=== PATIENT | female | born 1950 | race Caucasian/White ===

== ENCOUNTER 2016-05-22 11:40 | Observation (INO) | payer MEDICARE, BC ==
--- NOTE | 2016-05-22 12:46 | EKG REPORT ---
SEVERITY:- ABNORMAL ECG - SINUS BRADYCARDIA LEFT VENTRICULAR HYPERTROPHY : Confirmed by: Jane Cervantes MD 22-May-2016 12:45:07
--- NOTE | 2016-05-22 13:22 | ER Document Report ---
ED Cardiac - General Mode of Arrival: Medic Information source: Patient, Relative - - HPI Patient complains to provider of: Chest pain - Pressure Quality of pain: Pressure Chest pain radiation location: Left jaw, Right jaw Positive cardiac history: No <REUBEN TOMPKINS - Last Filed: 05/22/16 13:29> <BRYAN CRENSHAW - Last Filed: 05/22/16 15:11> - General Chief Complaint: Chest Pain Stated Complaint: CHEST PAIN Notes: Patient is 65-year-old female presenting to the emergency department concerned of chest pressure onset at 10:00 this morning while driving her to his doctor's appointment. Patient denies any true pain in her chest, stating it is only pressure, but does complain of pain radiating up into both jaws and feeling clammy. Patient has a past history of diabetes and hypertension, but she has not had any medication since she lost 50 lbs from her gastric sleeve surgery. (REUBEN TOMPKINS) This 65-year-old female patient with a history of hypertension diabetes which resolved after having gastric sleeve surgery almost a year ago. She is brought to emergency room by EMS from the doctor's office at [facility] for chest pressure. She reports she was driving to the office to take her significant other to be seen by his bander and cellophaner machine, when she developed chest pressure discomfort radiating into the jaws about 10 AM While in the office she began to get clammy and sweaty. She was seen there by nurse practitioner who administered 4 baby aspirin and called 911 to have her brought to the emergency room. She was pain free when she left the office and continues to be pain-free here in the emergency room. (BRYAN CRENSHAW) Past Medical History - General Information source: Patient, [facility] Records - Social History Smoking Status: Unknown if Ever Smoked Cigarette use (# per day): No Chew tobacco use (# tins/day): No Lives with: Spouse/Significant other Family History: Reviewed & Not Pertinent, Malignancy - Father of lung cancer - Past Medical History Cardiac Medical History: Reports: Hx Hypertension - Not since gastric sleeve Pulmonary Medical History: Reports: Hx Asthma Endocrine Medical History: Reports: Hx Diabetes Mellitus Type 2 - controlled by diet (gastric sleeve) GI Medical History: Reports: Hx Gastroesophageal Reflux Disease Past Surgical History: Reports: Hx Abdominal Surgery - gastric sleeve, Other - "eye surgery" - Immunizations Hx Diphtheria, Pertussis, Tetanus Vaccination: Yes <REUBEN TOMPKINS - Last Filed: 05/22/16 13:29> Review of Systems - Review of Systems Constitutional: See HPI, Diaphoresis - "clammy" EENT: No symptoms reported Cardiovascular: See HPI, Chest pain - Pressure Respiratory: No symptoms reported Gastrointestinal: No symptoms reported Genitourinary: No symptoms reported Female Genitourinary: No symptoms reported Musculoskeletal: No symptoms reported Skin: No symptoms reported Hematologic/Lymphatic: No symptoms reported Neurological/Psychological: No symptoms reported -: Yes All other systems reviewed and negative <ALEJANDRO TOMPKINSICA - Last Filed: 05/22/16 13:29> Physical Exam - Vital signs Interpretation: Bradycardic - General General appearance: Alert - HEENT Head: Normocephalic, Atraumatic Eyes: Normal Pupils: PERRL Neck: No: Carotid bruit - Respiratory Respiratory status: No respiratory distress Chest status: Nontender - No chest wall tenderness to palpation Breath sounds: Normal Chest palpation: Normal - Cardiovascular Rhythm: Bradycardia Heart sounds: Normal auscultation Murmur: No - Abdominal Inspection: Obese Tenderness: Nontender - Back Back: Normal, Nontender - Extremities General upper extremity: Normal inspection. No: Edema General lower extremity: Normal inspection. No: Edema - Neurological Neuro grossly intact: Yes Cognition: Normal Bradley Coma Scale Eye Opening: Spontaneous Bryce Coma Scale Verbal: Oriented Bradley Coma Scale Motor: Obeys Commands Bradley Coma Scale Total: 15 Speech: Normal - Psychological Associated symptoms: Normal affect, Normal mood - Skin Skin Temperature: Warm Skin Moisture: Moist Skin Color: Normal <ALEJANDRO TOMPKINSICA - Last Filed: 05/22/16 13:29> Course - Laboratory Result Diagrams: 05/22/16 12:23 05/22/16 12:23 - Diagnostic Test Radiology reviewed: Image reviewed, Reports reviewed - Chest x-ray does not show an acute process. - EKG Interpretation by Me EKG shows normal: Sinus rhythm, Hooper, Intervals, QRS Complexes, ST-T Waves Rate: Bradycardia - 44 Voltage: Consistant with LVH When compared to previous EKG there are: Previous EKG unavailable - Consults [facility] Time consulted: 15:05 Consulted provider: will come to ER <BRYAN CRENSHAW - Last Filed: 05/22/16 15:11> - Vital Signs Vital signs: Temp Pulse Resp BP Pulse Ox 98.1 F 50 L 13 157/79 H 98 05/22/16 12:36 05/22/16 12:36 05/22/16 13:07 05/22/16 12:36 05/22/16 13:07 (BRYAN CRENSHAW) - Laboratory Laboratory results interpreted by me: 05/22/16 05/22/16 12:23 12:23 RDW 15.8 H Sodium 145.6 H Carbon Dioxide 32 H (BRYAN CRENSHAW) Discharge <REUBEN TOMPKINS - Last Filed: 05/22/16 13:29> - Discharge Admitting Provider: Hospitalist Unit Admitted: Telemetry <BRYAN CRENSHAW - Last Filed: 05/22/16 15:11> - Discharge Clinical Impression: Bradycardia Chest pain Qualifiers: Chest pain type: unspecified Qualified Code(s): R07.9 - Chest pain, unspecified High blood pressure Qualifiers: Hypertension type: essential hypertension Qualified Code(s): I10 - Essential ( primary) hypertension Condition: Stable Disposition: ADMITTED OBSERVATION Scribe Attestation: 05/22/16 15:07 I personally performed the services described in the documentation, reviewed and edited the documentation which was dictated to the scribe in my presence, and it accurately records my words and actions. (BRYAN CRENSHAW) Scribe Documentation - Scribe Written by Scribe:: Reuben Tompkins 05/22/2016 1317 acting as scribe for :: Sukumar <REUBEN TOMPKINS - Last Filed: 05/22/16 13:29>
[2016-05-22 14:37] LABS: ABSOLUTE EOSINOPHILS # (AUTO) 0.3 10^3/uL (0.0-0.6); ABSOLUTE LYMPHOCYTES (AUTO) 2.5 10^3/uL (0.5-4.7); ABSOLUTE MONOCYTES (AUTO) 0.6 10^3/uL (0.1-1.4); ABSOLUTE NEUT (AUTO) 5.7 10^3/uL (1.7-8.2); BASOPHILS % (AUTO) 0.4 % (0-2); HEMATOCRIT 44.4 % (36.0-47.0); HEMOGLOBIN 14.3 g/dL (12.0-15.5); HGB HCT DIFFERENCE -1.5; LYMPHOCYTES % (AUTO) 27.7 % (13-45); MEAN CORPUSCULAR HEMOGLOBIN 28.8 pg (27.0-33.4); MEAN CORPUSCULAR HGB CONC 32.3 g/dL (32.0-36.0); MEAN CORPUSCULAR VOLUME 89 fl (80-97); MONOCYTES % (AUTO) 6.8 % (3-13); RED BLOOD COUNT 4.97 10^6/uL (3.72-5.28); RED CELL DISTRIBUTION WIDTH 15.8 % (11.5-14.0); SEGMENTED NEUTROPHILS % (AUTO) 62.1 % (42-78); WHITE BLOOD COUNT 9.2 10^3/uL (4.0-10.5)
[2016-05-22 14:47] LABS: ALANINE AMINOTRANSFERASE 38 U/L (9-52); ALBUMIN 4.1 g/dL (3.5-5.0); ALKALINE PHOSPHATASE 82 U/L (38-126); ANION GAP 11 (5-19); ASPARTATE AMINO TRANSFERASE 32 U/L (14-36); BILIRUBIN,TOTAL 0.6 mg/dL (0.2-1.3); BLOOD UREA NITROGEN 18 mg/dL (7-20); CALCIUM 9.9 mg/dL (8.4-10.2); CARBON DIOXIDE 32 mmol/L (22-30); CHLORIDE 103 mmol/L (98-107); CREATINE KINASE 45 U/L (30-135); CREATININE RESULT 0.76 mg/dL (0.52-1.25); GLUCOSE 86 mg/dL (75-110); POTASSIUM 4.3 mmol/L (3.6-5.0); SODIUM 145.6 mmol/L (137-145); TOTAL PROTEIN 7.6 g/dL (6.3-8.2)
[2016-05-22 14:59] LABS: CREATINE KINASE MB < 0.22 ng/mL (<4.55); TROPONIN I < 0.012 ng/mL
[2016-05-22] MEDS ORDERED: HYDRALAZINE HCL INJ/PF 20 MG/1 ML SDV IV PRN (16:06)
--- NOTE | 2016-05-22 16:06 | PDOC H&P ---
History of Present Illness Admission Date/PCP: 05/22/16 15:07 [facility] internal medicine Patient complains of: Chest pressure History of Present Illness: YARED LEON is a 65 year old with past medical history of morbid obesity status post gastric sleeve surgery as well as hypertension that presented to the emergency department concerned of chest pressure onset at 10: 00 this morning while driving her to his doctor's appointment. Patient denied any pain in her chest, stating it is only pressure, but does complain of pain radiating up into both jaws and feeling clammy. She was seen there by nurse practitioner who administered 4 baby aspirin and called 911 to have her brought to the emergency room. She was pain free when she left the office and continues to be pain-free here in the emergency room. While in the emergency department the patient was noted to be significantly bradycardic with a heart rate of 40. Patient has a past history of diabetes and hypertension, but she has not had any medication since she lost 50 lbs from her gastric sleeve surgery. The patient recently completed a 5 mile walk at the [facility] in [facility] [facility]. 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 denies: CAD Parental Family History Reviewed: Yes Children Family History Reviewed: Yes Sibling(s) Family History Reviewed.: Yes Medication/Allergy Home Medications: Hydralazine HCl [Apresoline 50 mg Tablet] 25 mg PO TID #90 tab 12/17/13 Allergies/Adverse Reactions: No Known Allergies Allergy (Unverified 05/22/16 15:25) Review of Systems Constitutional: ABSENT: chills, fever(s), headache(s), weight gain, weight loss Eyes: ABSENT: visual disturbances Ears: ABSENT: hearing changes Cardiovascular: PRESENT: other - Chest pressure. ABSENT: chest pain, dyspnea on exertion, edema, orthropnea, palpitations Respiratory: ABSENT: cough, hemoptysis Gastrointestinal: ABSENT: abdominal pain, constipation, diarrhea, hematemesis, hematochezia, nausea, vomiting Genitourinary: ABSENT: dysuria, hematuria Musculoskeletal: ABSENT: joint swelling Integumentary: PRESENT: diaphoresis. ABSENT: rash, wounds Neurological: ABSENT: abnormal gait, abnormal speech, confusion, dizziness, focal weakness, syncope Psychiatric: ABSENT: anxiety, depression, homidical ideation, suicidal ideation Endocrine: ABSENT: cold intolerance, heat intolerance, polydipsia, polyuria Hematologic/Lymphatic: ABSENT: easy bleeding, easy bruising Physical Exam Vital Signs: Temp Pulse Resp BP Pulse Ox 98.1 F 50 L 13 157/79 H 98 05/22/16 12:36 05/22/16 12:36 05/22/16 13:07 05/22/16 12:36 05/22/16 13:07 General appearance: PRESENT: no acute distress, well-developed, well-nourished Head exam: PRESENT: atraumatic, normocephalic Eye exam: PRESENT: conjunctiva pink, EOMI, PERRLA. ABSENT: scleral icterus Ear exam: PRESENT: normal external ear exam Mouth exam: PRESENT: moist, tongue midline Neck exam: ABSENT: carotid bruit, JVD, lymphadenopathy, thyromegaly Respiratory exam: PRESENT: clear to auscultation saleem, symmetrical, unlabored. ABSENT: rales, rhonchi, tachypnea, wheezes Cardiovascular exam: PRESENT: bradycardia, RRR. ABSENT: diastolic murmur, rubs , systolic murmur Pulses: PRESENT: normal dorsalis pedis pul Vascular exam: PRESENT: normal capillary refill GI/Abdominal exam: PRESENT: normal bowel sounds, soft. ABSENT: distended, guarding, mass, organolmegaly, rebound, tenderness Rectal exam: PRESENT: deferred Extremities exam: PRESENT: full ROM. ABSENT: calf tenderness, clubbing, pedal edema Neurological exam: PRESENT: alert, awake, oriented to person, oriented to place , oriented to time, oriented to situation, CN II-XII grossly intact. ABSENT: motor sensory deficit Psychiatric exam: PRESENT: appropriate affect, normal mood. ABSENT: homicidal ideation, suicidal ideation Skin exam: PRESENT: dry, intact, warm. ABSENT: cyanosis, rash Results Laboratory Results: Labs- Last Values WBC 9.2 10^3/uL (4.0-10.5) 05/22/16 12:23 RBC 4.97 10^6/uL (3.72-5.28) 05/22/16 12:23 Hgb 14.3 g/dL (12.0-15.5) 05/22/16 12:23 Hct 44.4 % (36.0-47.0) 05/22/16 12:23 MCV 89 fl (80-97) 05/22/16 12:23 MCH 28.8 pg (27.0-33.4) 05/22/16 12:23 MCHC 32.3 g/dL (32.0-36.0) 05/22/16 12:23 RDW 15.8 % (11.5-14.0) H 05/22/16 12:23 Plt Count 269 10^3/uL (150-450) 05/22/16 12:23 Seg Neutrophils % 62.1 % (42-78) 05/22/16 12:23 Lymphocytes % 27.7 % (13-45) 05/22/16 12:23 Monocytes % 6.8 % (3-13) 05/22/16 12:23 Eosinophils % 3.0 % (0-6) 05/22/16 12:23 Basophils % 0.4 % (0-2) 05/22/16 12:23 Absolute Neutrophils 5.7 10^3/uL (1.7-8.2) 05/22/16 12:23 Absolute Lymphocytes 2.5 10^3/uL (0.5-4.7) 05/22/16 12:23 Absolute Monocytes 0.6 10^3/uL (0.1-1.4) 05/22/16 12:23 Absolute Eosinophils 0.3 10^3/uL (0.0-0.6) 05/22/16 12:23 Absolute Basophils 0.0 10^3/uL (0.0-0.2) 05/22/16 12:23 Sodium 145.6 mmol/L (137-145) H 05/22/16 12:23 Potassium 4.3 mmol/L (3.6-5.0) 05/22/16 12:23 Chloride 103 mmol/L (98-107) 05/22/16 12:23 Carbon Dioxide 32 mmol/L (22-30) H 05/22/16 12:23 Anion Gap 11 (5-19) 05/22/16 12:23 BUN 18 mg/dL (7-20) 05/22/16 12:23 Creatinine 0.76 mg/dL (0.52-1.25) 05/22/16 12:23 Est GFR ( Amer) > 60 (>60) 05/22/16 12:23 Est GFR (Non-Af Amer) > 60 (>60) 05/22/16 12:23 Glucose 86 mg/dL (75-110) 05/22/16 12:23 Calcium 9.9 mg/dL (8.4-10.2) 05/22/16 12:23 Total Bilirubin 0.6 mg/dL (0.2-1.3) 05/22/16 12:23 Direct Bilirubin 0.0 mg/dL (0.0-0.3) 05/22/16 12:23 AST 32 U/L (14-36) 05/22/16 12:23 ALT 38 U/L (9-52) 05/22/16 12:23 Alkaline Phosphatase 82 U/L (38-126) 05/22/16 12:23 Creatine Kinase 45 U/L (30-135) 05/22/16 12:23 CK-MB (CK-2) < 0.22 ng/mL (<4.55) 05/22/16 12:23 Troponin I < 0.012 ng/mL 05/22/16 12:23 Total Protein 7.6 g/dL (6.3-8.2) 05/22/16 12:23 Albumin 4.1 g/dL (3.5-5.0) 05/22/16 12:23 Impressions: Chest X-Ray 05/22/16 13:15 IMPRESSION: NO ACUTE RADIOGRAPHIC FINDING IN THE CHEST. Assessment & Plan - Diagnosis (1) Chest pain Qualifiers: Chest pain type: unspecified Qualified Code(s): R07.9 - Chest pain, unspecified Is this a current diagnosis for this admission?: YesPlan: Will observe the patient continues telemetry unit, obtain serial cardiac enzymes , repeat EKG, and obtain lipid panel in the a.m. (2) Hypertension Qualifiers: Hypertension type: essential hypertension Qualified Code(s): I10 - Essential (primary) hypertension Is this a current diagnosis for this admission?: YesPlan: Most likely the patient does have elevated blood pressure at baseline. The patient has had a history of hypertension but this did improve after her weight loss however given the patient's significant hypertension at this time will cover with when necessary coverage. (3) Bradycardia Is this a current diagnosis for this admission?: YesPlan: It appears sinus. The patient denies any previous history of this. The patient is on any medications. Will consult cardiology for input. (4) Obesity (BMI 30.0-34.9) Is this a current diagnosis for this admission?: YesPlan: Status post surgery (5) DVT prophylaxis Is this a current diagnosis for this admission?: YesPlan: Will add subcutaneous Lovenox - Time Time Spent: 50 to 70 Minutes Medications reviewed and adjusted accordingly: Yes Anticipated discharge: Home Within: within 24 hours
[2016-05-22] MEDS ORDERED: INFLUENZA ADLT QUAD (36MOS+) 2016-17 VAC 0.5 ML SYR IM PRN (16:53)
[2016-05-22] MEDS: LANSOPRAZOLE 30 MG TAB.RAP.DR PO SCH (17:21)
[2016-05-22 18:16] LABS: APPEARANCE,URINE SLIGHTLY-CLOUDY; BILIRUBIN,URINE NEGATIVE (NEGATIVE); GLUCOSE, URINE NEGATIVE (NEGATIVE); KETONES,URINE NEGATIVE (NEGATIVE); LEUKOCYTE ESTERASE,URINE NEGATIVE (NEGATIVE); NITRITE,URINE NEGATIVE (NEGATIVE); PROTEIN,URINE NEGATIVE (NEGATIVE); URINE SPECIFIC GRAVITY 1.014; UROBILINOGEN,URINE NEGATIVE mg/dL (<2.0)
--- NOTE | 2016-05-22 20:01 | PDOC CONSULTATION ---
Consultation Consult Date: 05/22/16 Attending physician:: MONAE VARGAS Consult reason:: Chest pain History of Present Illness Admission Date/PCP: 05/22/16 15:07 Patient complains of: Chest pain and shortness of breath History of Present Illness: YARED ELON is a 65 year old with past medical history of morbid obesity status post gastric sleeve surgery as well as hypertension that presented to the emergency department concerned of chest pressure onset at 10: 00 this morning while driving her to his doctor's appointment. Patient denied any pain in her chest, stating it is only pressure, but does complain of pain radiating up into both jaws and feeling clammy. She was seen there by nurse practitioner who administered 4 baby aspirin and called 911 to have her brought to the emergency room. She was pain free when she left the office and continues to be pain-free here in the emergency room. While in the emergency department the patient was noted to be significantly bradycardic with a heart rate of 40. Patient has a past history of diabetes and hypertension, but she has not had any medication since she lost 50 lbs from her gastric sleeve surgery. The patient recently completed a 5 mile walk at the [facility] in [facility]. This history was reviewed and confirmed. Patient denied any prior history of myocardial infarction, angina, congestive heart failure, pulmonary embolism, strokes or mini strokes. She does give history of snoring and gastroesophageal reflux. Patient does describe history of difficulty falling asleep and staying asleep. Past Medical History Cardiac Medical History: Reports: Hypertension - Not since gastric sleeve Pulmonary Medical History: Reports: Asthma Endocrine Medical History: Reports: Diabetes Mellitus Type 2 - controlled by diet (gastric sleeve) GI Medical History: Reports: Gastroesophageal Reflux Disease Psychiatric Medical History: Denies: Depression Past Surgical History Past Surgical History: Reports: Gastric Bypass Surgery - Gastric sleeve, Other - "eye surgery" Social History Lives with: Spouse/Significant other Smoking Status: Never Smoker Cigarettes Packs Per Day: 1 Number of Years Smokin Last Time Smoked: Age 29 Frequency of Alcohol Use: None Hx Recreational Drug Use: No Drugs: None Hx Prescription Drug Abuse: No - Advance Directive Resuscitation Status: Full Code Family History Family History: Reviewed & Not Pertinent, Malignancy - Father of lung cancer. denies: CAD Parental Family History Reviewed: Yes Children Family History Reviewed: Yes Sibling(s) Family History Reviewed.: Yes - Negative for premature coronary artery disease or sudden cardiac in the family amongst first degree relatives. Medication/Allergy Home Medications: Esomeprazole Magnesium [Nexium] 40 mg PO QHS 05/22/16 Flaxseed Oil [Flax Seed Oil] 1,000 mg PO DAILY 05/22/16 Multivitamin [Multivitamins] 1 dose PO DAILY 05/22/16 Atorvastatin Calcium [Lipitor 10 mg Tablet] 10 mg PO QHS #30 tablet 05/23/16 Losartan Potassium [Cozaar 25 mg Tablet] 25 mg PO DAILY #30 tablet 05/23/16 Allergies/Adverse Reactions: iodine Allergy (Verified 05/22/16 22:21) Review of Systems Review of Systems: Please see history of present illness and past medical history as wall. Constitutional: No fever or chills reported. Head : No recent chronic headaches, recent head injury. Eyes: No recent eye pain, diplopia, redness, discharge, acute visual changes. Ears: No recent chronic ear pain, acute hearing loss, ear discharge. Oral cavity: No recent ulcerations, bleeding, oral cavity discomfort. Neck: No recent acute neck pain reported. Hematologic: No recent easy bruising or bleeding or hematologic malignancy reported. Lymphatic: No recent lymphatic malignancy, chronic lymphadenopathy reported yet Cardiovascular system review: See history of present illness. Chest pain and shortness of breath as noted above. Respiratory system review: No recent chronic cough, hemoptysis, blood clots in the lungs reported. Mild Shortness of breath on exertion Gastrointestinal system review: Negative for any recent acute or chronic abdominal pain, hematemesis, melena, recent change in bowel habits. Patient status post gastric bypass surgery. Genitourinary system review: No recent acute or chronic hematuria, flank pain, UTI etc. reported. Skin system review: Negative for any recent abnormal bruising, no rash, no pruritus reported. Neurologic: No prior history of strokes, mini strokes, seizure disorder. Gives history of snoring, daytime fatigue and sleepiness Psychologic: No history of major psychosis or depression reported. Musculoskeletal: Minor aches and pains reported. No acute joint swelling reported. Endocrine: No recent polyuria, polydipsia, recent heat or cold intolerance. Physical Exam Vital Signs: Temp Pulse Resp BP Pulse Ox 97.9 F 52 L 20 183/74 H 100 05/22/16 16:48 05/22/16 16:51 05/22/16 16:48 05/22/16 16:48 05/22/16 16:48 Intake & Output 05/21/16 05/22/16 05/23/16 06:59 06:59 06:59 Intake Total 480 Balance 480 Exam: GENERAL: well-nourished and in no acute distress. Alert and oriented x3 HEAD: Atraumatic, normocephalic. EYES: Pupils equal round and reactive to light, extraocular movements intact, sclera anicteric, conjunctiva are normal. ENT: TMs normal, nares patent, oropharynx clear without exudates. Moist mucous membranes. No oral ulcerations or bleeding gums noted NECK: supple without lymphadenopathy. Trachea is central. No cervical or axillary lymphadenopathy noted. Carotids are 2+, JVD WNL LUNGS: Respiration seems nonlabored, no significant accessory muscle action noted. Breath sounds clear to auscultation bilaterally and equal. No wheezes rales or rhonchi. No significant dullness noted on percussion. CHEST: Palpation of the chest wall shows no significant chest wall tenderness or abnormalities. 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 ABDOMEN: Soft, no significant tenderness appreciated, normoactive bowel sounds. No guarding, no rebound. No rigidity noted . No masses appreciated. EXTREMITIES: Pedal pulses are 1-2+, no calf tenderness noted. No clubbing or cyanosis.trace to 1+ pedal edema noted NEUROLOGICAL: Focused neurological exam showed no significant neurologic deficit. Normal speech, no focal weakness appreciated. PSYCH: Normal mood, normal affect. Judgment and insight within normal limits. SKIN: No significant ecchymosis, rash, ulcerations or signs of pruritus noted. MUSCULOSKELETAL EXAM: No significant joint swelling noted. Results Laboratory Results: 05/22/16 17:29 Urine Color YELLOW Urine Appearance SLIGHTLY-CLOUDY Urine pH 5.0 Ur Specific [place] 1.014 Urine Protein NEGATIVE Urine Glucose (UA) NEGATIVE Urine Ketones NEGATIVE Urine Blood NEGATIVE Urine Nitrite NEGATIVE Ur Leukocyte Esterase NEGATIVE Urine WBC (Auto) 1 Urine RBC (Auto) 0 EKG Comments: 12-lead EKG shows sinus bradycardia without any acute ST-T wave changes. Impressions: Chest X-Ray 05/22/16 13:15 IMPRESSION: NO ACUTE RADIOGRAPHIC FINDING IN THE CHEST. Assessment & Plan - Diagnosis (1) Chest pain Qualifiers: Chest pain type: unspecified Qualified Code(s): R07.9 - Chest pain, unspecified Is this a current diagnosis for this admission?: Yes (2) Bradycardia Is this a current diagnosis for this admission?: Yes (3) Gastroesophageal reflux disease Qualifiers: Esophagitis presence: esophagitis presence not specified Qualified Code(s): K21.9 - Gastro-esophageal reflux disease without esophagitis Is this a current diagnosis for this admission?: Yes (4) Obesity (BMI 30.0-34.9) Is this a current diagnosis for this admission?: Yes (5) Sleep disorder breathing Is this a current diagnosis for this admission?: Yes - Notes Notes: Chest pain: Patient has some typical and atypical features of chest pain. Cardiac enzymes so far has been negative. Electrocardiogram did not show any definitive ST segment changes. Multiple differential diagnoses exist in this patient. In descending order of probability this includes underlying coronary artery disease, gastroesophageal reflux, musculoskeletal pain, referred pain from elsewhere, anxiety panic disorder etc.Patient has significant cardiac risk factors, which indicates that there is a intermediate probability of chest discomfort coming from underlying CAD. Patient would benefit from a nuclear stress test and this can be scheduled as an outpatient. In the meantime will place patient empirically on double dose proton pump inhibitor and also schedule her for a CTA chest to rule out pulmonary embolism. Gastroesophageal reflux: Recommend double dose proton pump inhibitor. Bradycardia: Could be vagal reaction. Sometimes sleep apnea can cause increased vagal tone. At this point asymptomatic and will continue to observe. Obesity: Patient is status post gastric sleeve surgery. Patient will benefit from continuing calorie restriction and exercise program. Sleep disorder:This is suspect that based on patient's symptoms of snoring, daytime fatigue and somnolence. Patient also has difficulty falling asleep and staying asleep. Patient has obesity and oropharyngeal exams suggest high probability of underlying sleep apnea syndrome. Have discussed this with the patient. Discussed increased risk of cardiovascular event rate, cerebrovascular accident, cardiac arrhythmias, uncontrolled hypertension etc. as being associated with untreated sleep apnea. Discussed that we'll be happy to schedule this as an outpatient. Patient has been recommended weight loss, sleep hygiene. - Time Time Spent: 30 to 50 Minutes - CODE STATUS was discussed, patient remains full code. Surrogate decision-maker patient's . Multiple medical problems were addressed.More than 50% of the time spent coordinating care, discussing management plans with involved caregivers. Management plans discussed with involved personnels. Medical decision making was of moderate complexity.
[2016-05-22] MEDS ORDERED: DIPHENHYDRAMINE HCL 25 MG CAPSULE PO ONE (22:17)
[2016-05-22] MEDS: HEPARIN SOD (PORCINE) 5,000 UNIT/ML 1 ML SYRINGE SUBCUT SCH (22:19)
[2016-05-23] MEDS: LANSOPRAZOLE 30 MG TAB.RAP.DR PO SCH (06:22)
[2016-05-23] MEDS: HEPARIN SOD (PORCINE) 5,000 UNIT/ML 1 ML SYRINGE SUBCUT SCH (06:22)
[2016-05-23 06:48] LABS: CHOLESTEROL 201.29 mg/dL (0-200); Direct HDL 53 mg/dL (>40); TRIGLYCERIDES 214 mg/dL (<150)
[2016-05-23 06:59] LABS: DIRECT LDL 113 mg/dL (<100)
[2016-05-23 07:00] LABS: VLDL CHOLESTEROL 42.8 mg/dL (10-31)
[2016-05-23 08:03] VITALS: BP 148/67
[2016-05-23] MEDS ORDERED: LOSARTAN POTASSIUM 25 MG TABLET PO SCH (12:00)
[2016-05-23] MEDS ORDERED: LOSARTAN POTASSIUM 25 MG TABLET PO ONE (14:00)
--- NOTE | 2016-05-23 15:17 | EKG REPORT ---
SEVERITY:- NORMAL ECG - SINUS RHYTHM : Confirmed by: Jane Cervantes MD 23-May-2016 15:16:35
--- NOTE | 2016-05-23 18:40 | PDOC PROGRESS REPORT ---
Subjective Progress Note for:: 05/23/16 Subjective:: Patient seems to be doing better without any recurrence of chest pain, nausea vomiting.. Pt is denying any chest arm or neck discomfort. Patient denying any PND, orthopnea. Patient denied any sustained palpitations, dizziness, syncope, near syncope. Patient denying any fever chills. Patient denying any other significant discomfort. Patient is maintaining sinus rhythm. Patient noted to be mildly bradycardic but asymptomatic. All cardiac enzymes so far has come back negative. EKG without any acute ST segment changes. CTA of the chest positive for findings suggestive of pulmonary hypertension and also gallstones with sludge. Review of systems: Rest review of systems negative. Medications: Medications have been reviewed. Physical Exam Vital Signs: Temp Pulse Resp BP Pulse Ox 98.1 F 50 L 18 148/67 H 98 05/23/16 12:11 05/23/16 12:11 05/23/16 12:11 05/23/16 12:11 05/23/16 12:11 Intake & Output 05/22/16 05/23/16 05/24/16 06:59 06:59 06:59 Intake Total 1480 Balance 1480 Exam: GENERAL: well-nourished and in no acute distress. Alert and oriented x3 HEAD: Atraumatic, normocephalic. EYES: Pupils equal round and reactive to light, extraocular movements intact, sclera anicteric, conjunctiva are normal. ENT: TMs normal, nares patent, oropharynx clear without exudates. Moist mucous membranes. No oral ulcerations or bleeding gums noted NECK: supple without lymphadenopathy. Trachea is central. No cervical or axillary lymphadenopathy noted. Carotids are 2+, JVD WNL LUNGS: Respiration seems nonlabored, no significant accessory muscle action noted. Breath sounds clear to auscultation bilaterally and equal. No wheezes rales or rhonchi. No significant dullness noted on percussion. CHEST: Palpation of the chest wall shows no significant chest wall tenderness or abnormalities. 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 ABDOMEN: Soft, no significant tenderness appreciated, normoactive bowel sounds. No guarding, no rebound. No rigidity noted . No masses appreciated. EXTREMITIES: Pedal pulses are 1-2+, no calf tenderness noted. No clubbing or cyanosis.trace to 1+ pedal edema noted NEUROLOGICAL: Focused neurological exam showed no significant neurologic deficit. Normal speech, no focal weakness appreciated. PSYCH: Normal mood, normal affect. Judgment and insight within normal limits. SKIN: No significant ecchymosis, rash, ulcerations or signs of pruritus noted. MUSCULOSKELETAL EXAM: No significant joint swelling noted. Results Laboratory Results: 05/22/16 05/23/16 17:29 06:18 Triglycerides 214 H Cholesterol 201.29 H LDL Cholesterol Direct 113 H VLDL Cholesterol 42.8 H HDL Cholesterol 53 Urine Color YELLOW Urine Appearance SLIGHTLY-CLOUDY Urine pH 5.0 Ur Specific [place] 1.014 Urine Protein NEGATIVE Urine Glucose (UA) NEGATIVE Urine Ketones NEGATIVE Urine Blood NEGATIVE Urine Nitrite NEGATIVE Ur Leukocyte Esterase NEGATIVE Urine WBC (Auto) 1 Urine RBC (Auto) 0 05/22/16 05/23/16 20:13 02:27 Troponin I < 0.012 < 0.012 EKG Comments: 12-lead EKG shows sinus rhythm, with mild bradycardia but no acute ST-T wave changes Impressions: Chest X-Ray 05/22/16 13:15 IMPRESSION: NO ACUTE RADIOGRAPHIC FINDING IN THE CHEST. Chest/Abdomen CTA 05/22/16 18:53 IMPRESSION: NO PULMONARY EMBOLI. MILD ENLARGEMENT OF THE PULMONARY ARTERIES SUGGESTIVE OF PULMONARY ARTERY HYPERTENSION. CHOLELITHIASIS WITHOUT CT EVIDENCE OF CHOLECYSTITIS. Assessment & Plan - Diagnosis (1) Chest pain Qualifiers: Chest pain type: unspecified Qualified Code(s): R07.9 - Chest pain, unspecified Is this a current diagnosis for this admission?: Yes (2) Bradycardia Is this a current diagnosis for this admission?: Yes (3) Gastroesophageal reflux disease Qualifiers: Esophagitis presence: esophagitis presence not specified Qualified Code(s): K21.9 - Gastro-esophageal reflux disease without esophagitis Is this a current diagnosis for this admission?: Yes (4) Obesity (BMI 30.0-34.9) Is this a current diagnosis for this admission?: Yes (5) Sleep disorder breathing Is this a current diagnosis for this admission?: Yes (6) Cholelithiasis Qualifiers: Cholecystitis presence: without cholecystitis Biliary obstruction: without biliary obstruction Is this a current diagnosis for this admission?: Yes - Notes Notes: Chest pain: Patient has some typical and atypical features of chest pain. Cardiac enzymes so far has been negative. Electrocardiogram did not show any definitive ST segment changes. Multiple differential diagnoses exist in this patient. In descending order of probability this includes underlying coronary artery disease, gastroesophageal reflux, musculoskeletal pain, referred pain from elsewhere, anxiety panic disorder etc.Patient has significant cardiac risk factors, which indicates that there is a intermediate probability of chest discomfort coming from underlying CAD. Patient would benefit from a nuclear stress test and this can be scheduled as an outpatient. CTA findings were discussed. Gastroesophageal reflux: Recommend double dose proton pump inhibitor for the time being Bradycardia: Could be vagal reaction. Sometimes sleep apnea can cause increased vagal tone. At this point asymptomatic and will continue to observe. We will consider obtaining a TSH results. Obesity: Patient is status post gastric sleeve surgery. Patient will benefit from continuing calorie restriction and exercise program. Sleep disorder:This is suspect that based on patient's symptoms of snoring, daytime fatigue and somnolence. Patient also has difficulty falling asleep and staying asleep. Patient has obesity and oropharyngeal exams suggest high probability of underlying sleep apnea syndrome. Have discussed this with the patient. Discussed increased risk of cardiovascular event rate, cerebrovascular accident, cardiac arrhythmias, uncontrolled hypertension etc. as being associated with untreated sleep apnea. Discussed that we'll be happy to schedule this as an outpatient. Patient has been recommended weight loss, sleep hygiene. Gallstones: These were noted on CTA of the chest. Recommended that patient schedule a surgical appointment for consideration of cholecystectomy. Patient being obese and also being status post gastric sleeve surgery, Patient at high risk for gallstones development. Recommended follow-up study with 2-D echocardiogram and a nuclear stress test, ultrasound of the liver with gallbladder, surgical consultation etc. total time spent approximately 40 minutes. - Time Time with patient: Greater than 35 minutes - CODE STATUS was discussed, patient remains full code. Surrogate decision-maker unchanged. Multiple medical problems were addressed.More than 50% of the time spent coordinating care, discussing management plans with involved caregivers. Management plans discussed with involved personnels. Medical decision making was of moderate complexity.
[2016-05-23] MEDS ORDERED: ATORVASTATIN CALCIUM 10 MG TABLET PO SCH (22:00)
[2016-05-24] MEDS ORDERED: LOSARTAN POTASSIUM 25 MG TABLET PO SCH (10:00)
--- NOTE | 2016-05-24 16:52 | PDOC DISCHARGE SUMMARY ---
General - Admit/Disc Date/PCP Admission Date/Primary Care Provider: 05/22/16 15:07 [facility] internal medicine Discharge Date: 05/23/16 - Discharge Diagnosis (1) Chest pain Is this a current diagnosis for this admission?: Yes (2) Hypertension Is this a current diagnosis for this admission?: Yes (3) Bradycardia Is this a current diagnosis for this admission?: Yes (4) Obesity (BMI 30.0-34.9) Is this a current diagnosis for this admission?: Yes (5) Cholelithiasis Is this a current diagnosis for this admission?: Yes (6) Gastroesophageal reflux disease Is this a current diagnosis for this admission?: Yes (7) Sleep disorder breathing Is this a current diagnosis for this admission?: Yes (8) DVT prophylaxis Is this a current diagnosis for this admission?: Yes - Additional Information Resuscitation Status: Full Code Discharge Diet: As Tolerated Discharge Activity: Activity As Tolerated Home Medications: Esomeprazole Magnesium [Nexium] 40 mg PO QHS 05/22/16 Flaxseed Oil [Flax Seed Oil] 1,000 mg PO DAILY 05/22/16 Multivitamin [Multivitamins] 1 dose PO DAILY 05/22/16 Atorvastatin Calcium [Lipitor 10 mg Tablet] 10 mg PO QHS #30 tablet 05/23/16 Losartan Potassium [Cozaar 25 mg Tablet] 25 mg PO DAILY #30 tablet 05/23/16 History of Present Illness Patient complains of: Chest heaviness History of Present Illness: YARED LEON is a 65 year old with past medical history of morbid obesity status post gastric sleeve surgery as well as hypertension that presented to the emergency department concerned of chest pressure onset at 10: 00 this morning while driving her to his doctor's appointment. Patient denied any pain in her chest, stating it is only pressure, but does complain of pain radiating up into both jaws and feeling clammy. She was seen there by nurse practitioner who administered 4 baby aspirin and called 911 to have her brought to the emergency room. She was pain free when she left the office and continues to be pain-free here in the emergency room. While in the emergency department the patient was noted to be significantly bradycardic with a heart rate of 40. Patient has a past history of diabetes and hypertension, but she has not had any medication since she lost 50 lbs from her gastric sleeve surgery. The patient recently completed a 5 mile walk at the [facility] in [facility] and the [facility]. Hospital Course Hospital Course: The patient was observed in a continues telemetry unit, serial cardiac enzymes were obtained which were nonsuggestive. The patient's EKG revealed no acute changes and the patient had no events on patient monitor. Patient had no further replication of symptoms. The patient was seen and evaluated by Dr. Padgett with cardiology has been cleared for discharge from a cardiology perspective. Physical Exam Vital Signs: Temp Pulse Resp BP Pulse Ox 98.1 F 50 L 18 148/67 H 98 05/23/16 12:11 05/23/16 12:11 05/23/16 12:11 05/23/16 12:11 05/23/16 12:11 Intake & Output 05/22/16 05/23/16 05/24/16 23:59 23:59 23:59 Intake Total 1480 0 Balance 1480 0 General appearance: PRESENT: no acute distress, cooperative, well-developed, well-nourished Head exam: PRESENT: atraumatic, normocephalic Eye exam: PRESENT: conjunctiva pink, EOMI, PERRLA. ABSENT: scleral icterus Ear exam: PRESENT: normal external ear exam Mouth exam: PRESENT: moist, tongue midline Neck exam: ABSENT: carotid bruit, JVD, lymphadenopathy, thyromegaly Respiratory exam: PRESENT: clear to auscultation saleem, symmetrical, unlabored. ABSENT: rales, rhonchi, tachypnea, wheezes Cardiovascular exam: PRESENT: RRR. ABSENT: diastolic murmur, rubs, systolic murmur Pulses: PRESENT: normal dorsalis pedis pul Vascular exam: PRESENT: normal capillary refill GI/Abdominal exam: PRESENT: normal bowel sounds, soft. ABSENT: distended, guarding, mass, organolmegaly, rebound, tenderness Rectal exam: PRESENT: deferred Extremities exam: PRESENT: full ROM. ABSENT: calf tenderness, clubbing, pedal edema Neurological exam: PRESENT: alert, awake, oriented to person, oriented to place , oriented to time, oriented to situation, CN II-XII grossly intact. ABSENT: motor sensory deficit Psychiatric exam: PRESENT: appropriate affect, normal mood. ABSENT: homicidal ideation, suicidal ideation Skin exam: PRESENT: dry, intact, warm. ABSENT: cyanosis, rash Results Laboratory Results: Labs- Last Values WBC 9.2 10^3/uL (4.0-10.5) 05/22/16 12:23 RBC 4.97 10^6/uL (3.72-5.28) 05/22/16 12:23 Hgb 14.3 g/dL (12.0-15.5) 05/22/16 12:23 Hct 44.4 % (36.0-47.0) 05/22/16 12:23 MCV 89 fl (80-97) 05/22/16 12:23 MCH 28.8 pg (27.0-33.4) 05/22/16 12:23 MCHC 32.3 g/dL (32.0-36.0) 05/22/16 12:23 RDW 15.8 % (11.5-14.0) H 05/22/16 12:23 Plt Count 269 10^3/uL (150-450) 05/22/16 12:23 Seg Neutrophils % 62.1 % (42-78) 05/22/16 12:23 Lymphocytes % 27.7 % (13-45) 05/22/16 12:23 Monocytes % 6.8 % (3-13) 05/22/16 12:23 Eosinophils % 3.0 % (0-6) 05/22/16 12:23 Basophils % 0.4 % (0-2) 05/22/16 12:23 Absolute Neutrophils 5.7 10^3/uL (1.7-8.2) 05/22/16 12:23 Absolute Lymphocytes 2.5 10^3/uL (0.5-4.7) 05/22/16 12:23 Absolute Monocytes 0.6 10^3/uL (0.1-1.4) 05/22/16 12:23 Absolute Eosinophils 0.3 10^3/uL (0.0-0.6) 05/22/16 12:23 Absolute Basophils 0.0 10^3/uL (0.0-0.2) 05/22/16 12:23 Sodium 145.6 mmol/L (137-145) H 05/22/16 12:23 Potassium 4.3 mmol/L (3.6-5.0) 05/22/16 12:23 Chloride 103 mmol/L (98-107) 05/22/16 12:23 Carbon Dioxide 32 mmol/L (22-30) H 05/22/16 12:23 Anion Gap 11 (5-19) 05/22/16 12:23 BUN 18 mg/dL (7-20) 05/22/16 12:23 Creatinine 0.76 mg/dL (0.52-1.25) 05/22/16 12:23 Est GFR ( Amer) > 60 (>60) 05/22/16 12:23 Est GFR (Non-Af Amer) > 60 (>60) 05/22/16 12:23 Glucose 86 mg/dL (75-110) 05/22/16 12:23 Calcium 9.9 mg/dL (8.4-10.2) 05/22/16 12:23 Total Bilirubin 0.6 mg/dL (0.2-1.3) 05/22/16 12:23 Direct Bilirubin 0.0 mg/dL (0.0-0.3) 05/22/16 12:23 AST 32 U/L (14-36) 05/22/16 12:23 ALT 38 U/L (9-52) 05/22/16 12:23 Alkaline Phosphatase 82 U/L (38-126) 05/22/16 12:23 Creatine Kinase 45 U/L (30-135) 05/22/16 12:23 CK-MB (CK-2) < 0.22 ng/mL (<4.55) 05/22/16 12:23 Troponin I < 0.012 ng/mL 05/23/16 02:27 Total Protein 7.6 g/dL (6.3-8.2) 05/22/16 12:23 Albumin 4.1 g/dL (3.5-5.0) 05/22/16 12:23 Triglycerides 214 mg/dL (<150) H 05/23/16 06:18 Cholesterol 201.29 mg/dL (0-200) H 05/23/16 06:18 LDL Cholesterol Direct 113 mg/dL (<100) H 05/23/16 06:18 VLDL Cholesterol 42.8 mg/dL (10-31) H 05/23/16 06:18 HDL Cholesterol 53 mg/dL (>40) 05/23/16 06:18 Urine Color YELLOW 05/22/16 17:29 Urine Appearance SLIGHTLY-CLOUDY 05/22/16 17:29 Urine pH 5.0 (5.0-9.0) 05/22/16 17:29 Ur Specific [place] 1.014 05/22/16 17:29 Urine Protein NEGATIVE mg/dL (NEGATIVE) 05/22/16 17:29 Urine Glucose (UA) NEGATIVE mg/dL (NEGATIVE) 05/22/16 17:29 Urine Ketones NEGATIVE mg/dL (NEGATIVE) 05/22/16 17:29 Urine Blood NEGATIVE (NEGATIVE) 05/22/16 17:29 Urine Nitrite NEGATIVE (NEGATIVE) 05/22/16 17: Urine Bilirubin NEGATIVE (NEGATIVE) 05/22/16 17: Urine Urobilinogen NEGATIVE mg/dL (<2.0) 05/22/16 17:29 Ur Leukocyte Esterase NEGATIVE (NEGATIVE) 05/22/16 17:29 Urine WBC (Auto) 1 /HPF 05/22/16 17:29 Urine RBC (Auto) 0 /HPF 05/22/16 17:29 Squamous Epi Cells Auto <1 /HPF 05/22/16 17:29 Urine Mucus (Auto) RARE /LPF 05/22/16 17:29 Urine Ascorbic Acid 40 (NEGATIVE) H 05/22/16 17:29 Impressions: Chest X-Ray 05/22/16 13:15 IMPRESSION: NO ACUTE RADIOGRAPHIC FINDING IN THE CHEST. Chest/Abdomen CTA 05/22/16 18:53 IMPRESSION: NO PULMONARY EMBOLI. MILD ENLARGEMENT OF THE PULMONARY ARTERIES SUGGESTIVE OF PULMONARY ARTERY HYPERTENSION. CHOLELITHIASIS WITHOUT CT EVIDENCE OF CHOLECYSTITIS. Qualifiers PATEINT BEING DISCHARGED WITH ANY OF THE FOLLOWING DIAGNOSIS?: No Plan Time Spent: Less than 30 Minutes
== END 2016-05-23 13:01 | disposition home or self-care (01) ==
LOC: ER 11:40 → EH 15:07 → UNDOADMOB 15:19 → EH 15:19 → 4N 16:45
PROVIDERS: ADMIT Family Medicine; ATTEND Family Medicine
PROC: 3E0234Z Introduction of Serum, Toxoid and Vaccine into Muscle, Percutaneous Approach (ICD-10-PCS; principal; 2016-05-22)
DX: R07.9 Chest pain, unspecified (principal); I10 Essential (primary) hypertension; R00.1 Bradycardia, unspecified; E66.01 Morbid (severe) obesity due to excess calories; Z68.30 Body mass index [BMI] 30.0-30.9, adult; K80.20 Calculus of gallbladder without cholecystitis without obstruction; K21.9 Gastro-esophageal reflux disease without esophagitis; G47.30 Sleep apnea, unspecified; Z79.01 Long term (current) use of anticoagulants; E11.9 Type 2 diabetes mellitus without complications; Z98.84 Bariatric surgery status; Z23 Encounter for immunization; J45.909 Unspecified asthma, uncomplicated
CPT/HCPCS: 93005 ×2; 99285; 36415 ×2; 82553; 82550; 85025; 80053; 81001; 84484 ×2; 80061; 71010; 71275; 90686; 93010 ×2; G0378 ×3; J1644 ×2; A9270 ×3; J0360; J3490 ×2; 90471; G0008

== ENCOUNTER → 2017-10-12 | Outpatient (CLI) | payer MEDICARE, BC ==
--- NOTE | 2017-10-12 15:18 | RADIOLOGY REPORT (SQ) ---
EXAM DESCRIPTION: MRI LT LOWER JOINT WITHOUT COMPLETED DATE/TIME: 10/12/2017 8:45 am REASON FOR STUDY: L KNEE PAIN M25.562 PAIN IN LEFT KNEE COMPARISON: None. TECHNIQUE: Rightknee images acquired and stored on PACS. Multiplanar images include fat sensitive s equences as T1, water sensitive sequences as FST2 or STIR, cartilage sensitive sequences as FSPD, and gradient echo sequences. LIMITATIONS: None. FINDINGS: JOINT AND BURSAE: Large suprapatellar knee joint effusion BONE CORTEX AND MARROW: No alteration of signal to suggest marrow replacement. No worrisome bone lesi ons. No occult fracture. ACL: Intact. No degeneration or ganglion cyst. PCL: Intact. MCL: Intact. No periligamentous edema or fluid. LCL: Intact. No periligamentous edema or fluid. MEDIAL MENISCUS: Diffuse horizontal tear throughout the mid body and posterior horn medial meniscus. There is a medially flipped bucket-handle fragment in the posterior aspect of the medial compartment joint space, marked with an arrow on coronal image 18 and sagittal image 10. LATERAL MENISCUS: No tears. No abnormal signal. MEDIAL COMPARTMENT: Moderate chondromalacia. No bone bruises or reactive marrow edema. No osteophytes . LATERAL COMPARTMENT: Mild chondromalacia. No bone bruises or reactive marrow edema. No osteophytes. PATELLA: High-grade midline patellar chondromalacia with small subcortical cysts and subcortical gunnar a. Medial and lateral retinacula intact. EXTENSOR MECHANISM: Intact. Quadriceps and patella tendons normal. SOFT TISSUES: Adjacent muscles and subcutaneous tissues normal. Normal flow void in popliteal artery and vein. OTHER: No other significant finding. IMPRESSION: Medial meniscal tear with medially flipped bucket-handle fragment Joint effusion Chondromalacia most pronounced in the patellofemoral and medial compartment TECHNICAL DOCUMENTATION: JOB ID: [id number] [employer]- All Rights Reserved Reading location - IP/workstation name: [email or web address]
== END ==
LOC: RAD 08:01
PROVIDERS: ATTEND Physician Assistant
DX: M25.562 Pain in left knee (principal)